=== PATIENT | female | born 1930 | race Caucasian/White ===

== ENCOUNTER → 2016-07-06 | Outpatient (CLI) | payer BC, OTHER ==
[~2016-07-06] MED LIST: AMLH/550 PO; ASPI81TA28 PO; CARB1SOL OPB; CHOL100027 PO; CYCL0.052 OPB; LPR25 PO; MULTCAP33 PO; OMEP40CA41 PO; SIMV-151 PO; ULT50HP PO
[2016-07-06 17:31] LABS: BASO % 0.9 %; BASO ABS # 0.04 K/uL (0-0.2); COMPLETE YES; EOS % 3.1 %; IG% 0.2 %; LYMPH % 24.6 %; LYMPH ABS # 1.04 K/uL (1.2-3.4); MEAN CELL VOLUME 86.7 fL (80-100); MEAN CORPUSCULAR HEMOGLOBIN 28.7 pg (25-34); MEAN CORPUSCULAR HGB CONC 33.1 g/dl (32-36); MEAN PLATELET VOLUME 9.3 fL (7.4-10.4); MONO % 12.1 %; NEUT % 59.1 %; PLATELET COUNT 216 K/uL (130-400); WHITE BLOOD COUNT 4.22 K/uL (4.8-10.8)
[2016-07-07 06:15] LABS: ESTIMATED AVERAGE GLUCOSE 111 mg/dl; HA1C FLAG Normal (Normal)
== END | disposition home or self-care (01) ==
LOC: C.LABBFT 13:22
PROVIDERS: ATTEND Internal Medicine
DX: R73.01 Impaired fasting glucose (principal); E55.9 Vitamin D deficiency, unspecified; D72.819 Decreased white blood cell count, unspecified

== ENCOUNTER → 2016-07-19 | Outpatient (CLI) | payer OTHER, BC ==
--- NOTE | 2016-07-19 11:54 | DIAGNOSTIC IMAGING REPORT ---
BILATERAL CAROTID DOPPLER STUDY HISTORY: CAROTID BRUIT COMPARISON: None. TECHNIQUE: Real-time, grayscale, and color Doppler sonography of the carotid arteries was performed. Imaging reviewed in the transverse and longitudinal planes. All measurements were calculated based on NASCET criteria. FINDINGS: Antegrade flow is seen in the bilateral vertebral arteries. The brachial pressures are hemodynamically similar. Minimal right and mild left carotid bulb calcified plaque. The peak systolic velocity within the right ICA is 44 cm/s. The right systolic ratio is 0.6. The peak systolic velocity within the left ICA is 61 cm/s. The left systolic ratio is 1.0. IMPRESSION: No hemodynamically significant stenosis seen within the carotid arteries. Electronically signed by: Darrel Courtney M.D. 07/19/2016 11:52 AM Dictated Date/Time: 07/19/2016 11:52 AM
== END | disposition home or self-care (01) ==
LOC: C.ULTR 10:45
PROVIDERS: ATTEND Internal Medicine
DX: R09.89 Other specified symptoms and signs involving the circulatory and respiratory systems (principal)

== ENCOUNTER → 2017-01-09 | Outpatient (CLI) | payer OTHER, BC ==
[2017-01-09 12:32] LABS: BASO % 0.7 %; BASO ABS # 0.03 K/uL (0-0.2); COMPLETE YES; EOS % 1.3 %; HEMATOCRIT 39.7 % (37-47); IG% 0.2 %; LYMPH % 23.5 %; LYMPH ABS # 1.05 K/uL (1.2-3.4); MEAN CELL VOLUME 87.1 fL (80-100); MEAN CORPUSCULAR HEMOGLOBIN 28.5 pg (25-34); MEAN CORPUSCULAR HGB CONC 32.7 g/dl (32-36); MEAN PLATELET VOLUME 9.3 fL (7.4-10.4); MONO % 13.2 %; NEUT % 61.1 %; PLATELET COUNT 198 K/uL (130-400); RED BLOOD COUNT 4.56 M/uL (4.2-5.4); WHITE BLOOD COUNT 4.46 K/uL (4.8-10.8)
[2017-01-09 12:46] LABS: ESTIMATED AVERAGE GLUCOSE 111 mg/dl; HA1C FLAG Normal (Normal)
[2017-01-09 12:52] LABS: ALT/SGPT 17 U/L (12-78); AST/SGOT 14 U/L (15-37); BLOOD UREA NITROGEN 17 mg/dl (7-18); BUN/CREATININE RATIO 18.8 (10-20); CARBON DIOXIDE 30 mmol/L (21-32); CHLORIDE 101 mmol/L (98-107); CREATININE 0.89 mg/dl (0.60-1.20); GLUCOSE 110 mg/dl (70-99); POTASSIUM 3.3 mmol/L (3.5-5.1); SODIUM 139 mmol/L (136-145)
[2017-01-09 12:56] LABS: URINE APPEARANCE CLEAR (CLEAR); URINE BILIRUBIN NEG (NEG); URINE COLOR DK YELLOW; URINE EPITHELIAL CELL AUTO >30 /lpf (0-5); URINE NITRITE NEG (NEG); URINE SPECIFIC GRAVITY 1.023 (1.000-1.030); UROBILINOGEN NEG (NEG); ZZUR CULT IF INDIC CLEAN CATCH NO
[2017-01-09 13:03] LABS: ALB/GLOB RATIO 1.1 (0.9-2); ALKALINE PHOSPHATASE 84 U/L (45-117); CHOLESTEROL 146 mg/dl (0-200); CHOLESTEROL/HDL RATIO 2.7; HDL CHOLESTEROL 54 mg/dl; LDL CHOLESTEROL CALCULATED 74 mg/dl; TRIGLYCERIDES 92 mg/dl (0-150); VERY LOW DENSITY LIPOPROT CALC 18 mg/dl
[2017-01-09 13:05] LABS: MANUAL MICROSCOPIC REQUIRED? NO; REVIEW REQ? NO
== END | disposition home or self-care (01) ==
LOC: C.LABBFT 09:07
PROVIDERS: ATTEND Internal Medicine
DX: R73.01 Impaired fasting glucose (principal); E78.00 Pure hypercholesterolemia, unspecified; E55.9 Vitamin D deficiency, unspecified

== ENCOUNTER 2017-06-09 16:31 | Emergency (ER) | payer OTHER, BC ==
[~2017-06-09] VITALS: Ht 152.4 cm; Wt 60.0 kg
[2017-06-09 16:41] VITALS: TEMP 36.8; Ht 152.4 cm; Wt 60.0 kg
[2017-06-09] MEDS ORDERED: MoRPHine SULFATE 4 MG/ML 1 ML CARP\\VIAL IV STA (18:25)
[2017-06-09] MEDS ORDERED: ONDANSETRON INJ 2 MG/ML 2 ML VIAL IV STA (18:25)
[2017-06-09] MEDS ORDERED: MoRPHine SULFATE 2 MG/ML CARP ONE (18:50)
[2017-06-09 18:59] LABS: BASO % 0.2 %; BASO ABS # 0.02 K/uL (0-0.2); EOS % 0.1 %; EOS ABS # 0.01 K/uL (0-0.5); HEMATOCRIT 40.5 % (37-47); IG# 0.04 K/uL (0.00-0.02); MEAN CELL VOLUME 85.1 fL (80-100); MEAN CORPUSCULAR HEMOGLOBIN 29.4 pg (25-34); MEAN CORPUSCULAR HGB CONC 34.6 g/dl (32-36); MEAN PLATELET VOLUME 8.9 fL (7.4-10.4); MONO % 9.3 %; MONO ABS # 0.92 K/uL (0.11-0.59); NEUT ABS # 8.34 K/uL (1.4-6.5); PLATELET COUNT 194 K/uL (130-400); RED CELL DISTRIBUTION WIDTH SD 43.1 fL (36.4-46.3); WHITE BLOOD COUNT 9.93 K/uL (4.8-10.8)
[2017-06-09 19:16] LABS: CALCIUM 9.2 mg/dl (8.5-10.1); CREATININE 1.14 mg/dl (0.60-1.20); POTASSIUM 3.8 mmol/L (3.5-5.1)
[2017-06-09 19:19] LABS: TOTAL PROTEIN 7.3 gm/dl (6.4-8.2)
--- NOTE | 2017-06-09 19:54 | DIAGNOSTIC IMAGING REPORT ---
CT SCAN OF THE ABDOMEN AND PELVIS WITHOUT CONTRAST CLINICAL HISTORY: Left flank pain COMPARISON STUDY: No previous studies for comparison. TECHNIQUE: CT scan of the abdomen and pelvis was performed from the lung bases to the proximal femurs. Images are reviewed in the axial, sagittal, and coronal planes. IV contrast was not administered for this examination. A dose lowering technique was utilized adhering to the principles of ALARA. CT DOSE: 638.98 mGy.cm FINDINGS: Lower chest: There are by basilar atelectatic changes. There is aortic tortuosity. There is calcification within the mitral valve annulus. Liver: There is a 1 cm hypodensity within the liver the right/left lobe junction. This likely represents a cyst. Gallbladder: Cholelithiasis Spleen: Normal in size and attenuation. Pancreas: Unremarkable. Adrenal glands: Unremarkable. Kidneys: There is a 6 mm lower pole right renal calculus. There are multiple left renal calculi. The largest cluster is located within the lower pole measuring 1 cm]. There is left-sided hydronephrosis. There is left-sided perinephric stranding. There is a 5 mm proximal left ureteral calculus. There is a left UVJ calculus measuring 4 mm. Bowel: There are no transition zones indicate bowel obstruction. There is no acute diverticulitis. Peritoneum: There is no intraperitoneal free air or abdominal ascites. There is a fat-containing umbilical hernia Vasculature: The abdominal aorta is normal in course and caliber. Adenopathy: None. Pelvic viscera: The uterus is surgically absent. There is pelvic floor relaxation Skeletal structures: The bones are osteopenic. There are multiple lumbar and thoracic vertebral body compression fractures. IMPRESSION: 1. No evidence of bowel obstruction. No evidence of free air 2. Cholelithiasis 3. Bilateral nephrolithiasis 4. Left-sided hydronephrosis and hydroureter. 5 mm proximal left ureteral calculus and 4 mm left UVJ calculus Electronically signed by: Ramon Saavedra M.D. 06/09/2017 7:53 PM Dictated Date/Time: 06/09/2017 7:48 PM
[2017-06-09] MEDS ORDERED: SODIUM CHLORIDE 0.9% 250ML 250 ML IV STA (20:26)
[2017-06-09] MEDS ORDERED: OXYC1TAB3 PO (21:05)
[2017-06-09] MEDS ORDERED: OXYCODONE IR HOME PACK PO ONE (21:15)
[2017-06-09 21:31] VITALS: BP 126/86; PULSE 70; O2SAT 96
--- NOTE | 2017-06-10 00:40 | EMERGENCY ROOM VISIT NOTE ---
History Report prepared by Wojciech: Thanh Thorpe Under the Supervision of: Dr. Thanh Lozano M.D. First contact with patient: 18:00 Chief Complaint: FLANK PAIN Stated Complaint: PAIN L SIDE ACROSS BACK History of Present Illness The patient is a 86 year old female who presents to the Emergency Room with complaints of constant left side abdominal pain that began this afternoon. She adds that the pain radiates to her back. Patient describes the quality of pain as "gnawing". Patient states that she has a history of kidney stones. She states that the pain does not feel as bad as her previous kidney stones. Patient denies associated symptoms of fevers, vomiting, diarrhea, problems urinating, and hematuria. Patient denies any other health problems. She denies a history of high blood pressure. Source of History: patient Onset: This afternoon Position: abdomen (Left-sided) Quality: other ("Gnawing") Timing: constant Associated Symptoms: No fevers, No vomiting, No diarrhea, No urinary symptoms Review of Systems See HPI for pertinent positives & negatives. A total of 10 systems reviewed and were otherwise negative. Past Medical & Surgical Medical Problems: (1) Esophageal Reflux (2) Hypertension (3) Osteoporosis Nos Family History FH: heart attack Social History Smoking Status: Never Smoker Marital Status: Housing Status: lives with family Current/Historical Medications Scheduled Amiloride/Hctz (Amiloride/Hydrochlorothia 5-50 mg), 1 TAB PO DAILY Aspirin (Aspirin Ec), 81 MG PO DAILY Carboxymethylcellulose Sodium (Refresh), 1 DROP OPB 3-4XD Cholecalciferol (Vitamin D 1000 Unit), 1,000 INTER.UNIT PO WK Cyclosporine (Ophth) (Restasis), 1 DROP OPB BID Metoprolol Tartrate (Lopressor), 25 MG PO DAILY Multiple Vitamins W/ Minerals (Preservision Areds), 1 CAP PO BID Omeprazole (Prilosec), 20 MG PO Q2D Simvastatin (Simvastatin), 20 MG PO DAILY Tramadol HCl (Tramadol HCl), 50 MG PO DAILY Scheduled PRN Oxycodone Ir (Roxicodone Ir), 5 MG PO Q4H PRN for Pain Allergies Coded Allergies: Penicillins (Verified Allergy, Mild, 09/17/15) Physical Exam Vital Signs Date Time Temp Pulse Resp B/P (MAP) Pulse Ox O2 Delivery O2 Flow Rate FiO2 06/09/17 21:31 70 20 126/86 96 06/09/17 20:24 71 20 137/77 96 Room Air 06/09/17 18:57 74 20 148/68 95 Room Air 06/09/17 16:41 36.8 61 20 162/82 96 Room Air Physical Exam Constitutional: Vital signs reviewed. Eyes: Pupils are equal round reactive to light. Conjunctiva are noninjected. ENT: Pharynx is clear without erythema or exudate. Mucous membranes are moist. Neck supple without meningeal signs. Respiratory: Clear to auscultation bilaterally. Breath sounds are equal bilaterally. Cardiovascular: Regular rate and rhythm. No rubs or gallops. GI: Soft, nondistended and nontender. Bowel sounds are present. Musculoskeletal: No CVA tenderness. No peripheral edema. Integumentary: No cyanosis. Neurological: The patient is awake and alert. No focal deficits. Psychiatric: Normal affect. Medical Decision & Procedures ER Provider Diagnostic Interpretation: Radiology results as stated below per my review and the radiologist's interpretation: CT SCAN OF THE ABDOMEN AND PELVIS WITHOUT CONTRAST CLINICAL HISTORY: Left flank pain COMPARISON STUDY: No previous studies for comparison. TECHNIQUE: CT scan of the abdomen and pelvis was performed from the lung bases to the proximal femurs. Images are reviewed in the axial, sagittal, and coronal planes. IV contrast was not administered for this examination. A dose lowering technique was utilized adhering to the principles of ALARA. CT DOSE: 638.98 mGy.cm FINDINGS: Lower chest: There are by basilar atelectatic changes. There is aortic tortuosity. There is calcification within the mitral valve annulus. Liver: There is a 1 cm hypodensity within the liver the right/left lobe junction. This likely represents a cyst. Gallbladder: Cholelithiasis Spleen: Normal in size and attenuation. Pancreas: Unremarkable. Adrenal glands: Unremarkable. Kidneys: There is a 6 mm lower pole right renal calculus. There are multiple left renal calculi. The largest cluster is located within the lower pole measuring 1 cm]. There is left-sided hydronephrosis. There is left-sided perinephric stranding. There is a 5 mm proximal left ureteral calculus. There is a left UVJ calculus measuring 4 mm. Bowel: There are no transition zones indicate bowel obstruction. There is no acute diverticulitis. Peritoneum: There is no intraperitoneal free air or abdominal ascites. There is a fat-containing umbilical hernia Vasculature: The abdominal aorta is normal in course and caliber. Adenopathy: None. Pelvic viscera: The uterus is surgically absent. There is pelvic floor relaxation Skeletal structures: The bones are osteopenic. There are multiple lumbar and thoracic vertebral body compression fractures. IMPRESSION: 1. No evidence of bowel obstruction. No evidence of free air 2. Cholelithiasis 3. Bilateral nephrolithiasis 4. Left-sided hydronephrosis and hydroureter. 5 mm proximal left ureteral calculus and 4 mm left UVJ calculus Electronically signed by: Ramon Saavedra M.D. 06/09/2017 7:53 PM Dictated Date/Time: 06/09/2017 7:48 PM Laboratory Results 06/09/17 18:50 Red Blood Count 4.76, Mean Corpuscular Volume 85.1, Mean Corpuscular Hemoglobin 29.4, Mean Corpuscular Hemoglobin Concent 34.6, Mean Platelet Volume 8.9, Neutrophils (%) (Auto) 84.0, Lymphocytes (%) (Auto) 6.0, Monocytes (%) (Auto) 9.3, Eosinophils (%) (Auto) 0.1, Basophils (%) (Auto) 0.2, Neutrophils # (Auto) 8.34, Lymphocytes # (Auto) 0.60, Monocytes # (Auto) 0.92, Eosinophils # (Auto) 0.01, Basophils # (Auto) 0.02 06/09/17 18:50 Test 06/09/17 18:50 06/09/17 20:30 White Blood Count 9.93 K/uL (4.8-10.8) Red Blood Count 4.76 M/uL (4.2-5.4) Hemoglobin 14.0 g/dL (12.0-16.0) Hematocrit 40.5 % (37-47) Mean Corpuscular Volume 85.1 fL (80-100) Mean Corpuscular Hemoglobin 29.4 pg (25-34) Mean Corpuscular Hemoglobin Concent 34.6 g/dl (32-36) Platelet Count 194 K/uL (130-400) Mean Platelet Volume 8.9 fL (7.4-10.4) Neutrophils (%) (Auto) 84.0 % Lymphocytes (%) (Auto) 6.0 % Monocytes (%) (Auto) 9.3 % Eosinophils (%) (Auto) 0.1 % Basophils (%) (Auto) 0.2 % Neutrophils # (Auto) 8.34 K/uL (1.4-6.5) Lymphocytes # (Auto) 0.60 K/uL (1.2-3.4) Monocytes # (Auto) 0.92 K/uL (0.11-0.59) Eosinophils # (Auto) 0.01 K/uL (0-0.5) Basophils # (Auto) 0.02 K/uL (0-0.2) RDW Standard Deviation 43.1 fL (36.4-46.3) RDW Coefficient of Variation 14.0 % (11.5-14.5) Immature Granulocyte % (Auto) 0.4 % Immature Granulocyte # (Auto) 0.04 K/uL (0.00-0.02) Anion Gap 7.0 mmol/L (3-11) Est Creatinine Clear Calc Drug Dose 28.7 ml/min Estimated GFR () 50.4 Estimated GFR (Non- 43.5 BUN/Creatinine Ratio 14.5 (10-20) Calcium Level 9.2 mg/dl (8.5-10.1) Total Bilirubin 1.8 mg/dl (0.2-1) Direct Bilirubin 0.3 mg/dl (0-0.2) Aspartate Amino Transf (AST/SGOT) 20 U/L (15-37) Alanine Aminotransferase (ALT/SGPT) 19 U/L (12-78) Alkaline Phosphatase 86 U/L (45-117) Total Protein 7.3 gm/dl (6.4-8.2) Albumin 4.0 gm/dl (3.4-5.0) Lipase 88 U/L (73-393) Urine Color YELLOW Urine Appearance CLOUDY (CLEAR) Urine pH 6.0 (4.5-7.5) Urine Specific [place] 1.019 (1.000-1.030) Urine Protein TRACE (NEG) Urine Glucose (UA) NEG (NEG) Urine Ketones 1+ (NEG) Urine Occult Blood 3+ (NEG) Urine Nitrite NEG (NEG) Urine Bilirubin NEG (NEG) Urine Urobilinogen NEG (NEG) Urine Leukocyte Esterase TRACE (NEG) Urine WBC (Auto) 1-5 /hpf (0-5) Urine RBC (Auto) >30 /hpf (0-4) Urine Hyaline Casts (Auto) 1-5 /lpf (0-5) Urine Epithelial Cells (Auto) >30 /lpf (0-5) Urine Bacteria (Auto) NEG (NEG) Laboratory results as reviewed by me. Medications Administered Medications (Trade) Dose Ordered Sig/Nathanael Route Start Time Stop Time Status Last Admin Dose Admin Ondansetron HCl (Zofran Inj) 4 mg NOW STAT IV 06/09/17 18:25 06/09/17 18:27 DC 06/09/17 18:53 4 MG Morphine Sulfate (MoRPHine SULFATE INJ) 2 mg STK-MED ONCE .ROUTE 06/09/17 18:50 06/09/17 18:51 DC 06/09/17 18:54 2 MG Sodium Chloride 250 ml @ 999 mls/hr Q16M STAT IV 06/09/17 20:26 06/09/17 20:41 DC 06/09/17 20:26 999 MLS/HR Oxycodone HCl (Roxicodone Immediate Rel 5MG Home Pack) 1 homepack UD ONCE PO 06/09/17 21:15 06/09/17 21:16 DC 06/09/17 21:26 1 HOMEPACK ECG Per My Interpretation Indication: abdominal pain Rate (beats per minute): 70 Rhythm: normal sinus Findings: no ectopy, other (No ST elevation) ED Course 1804: The patient was evaluated in room A3. A complete history and physical exam was performed. 1824: Zofran Inj 4mg IV and Morphine Sulfate 2mg IV 1999: I discussed the test results with patient. She states that her pain is under control. Patient is giving a urine sample. 2025: Sodium Chloride 250 ml @ 999 mls/hr IV 2114: Oxycodone HCl 1 homepack PO 2119: Upon reevaluation, the patient appeared to have improvement of her symptoms. I discussed aly's findings with her. She states that she will follow up with Dr. Orellana of Urology. She verbalized agreement of the treatment plan. She was discharged home. Medical Decision This is an 86-year-old female presents with left-sided flank pain. Differential diagnosis includes renal colic, hydronephrosis, strain, diverticulitis, abdominal aortic aneurysm, shingles. I did perform a limited focused review of portions of the patient's old chart on the electronic medical record. The patient has had no recent pertinent visits to this hospital. I did evaluate the patient as noted above. IV access was established. I did treat patient with IV morphine and Zofran. I did order and personally review the patient's 12-lead EKG as described above. I did order and review the patient's blood work as noted in the electronic medical record. I did order a CT of the abdomen and pelvis. I did review the images myself as well as the radiology report as described above. The patient has 2 ureteral stones on the left side. One is 5 mm in the proximal ureter. One is 4 mm at the left UVJ. Urinalysis does not show signs of infection. I did order a urine culture. I did discuss the test results with the patient. She is feeling better and ready for discharge. She will follow-up with Dr. Orellana. She was given return instructions as outlined below. She was given a prescription for OxyIR and given precautions regarding this medication. She was told to take a half tablet every 4 hours as needed and not to take her tramadol while taking this medication. [place] Drug Monitoring Program Search Results: no issues identified Medication Reconcilliation Current Medication List: was personally reviewed by me Blood Pressure Screening Patient's blood pressure: Elevated blood pressure Blood pressure disposition: Referred to PCP Impression Primary Impression: Renal colic Scribe Attestation The scribe's documentation has been prepared under my direct and personally reviewed by me in its entirety. I confirm that the note above accurately reflects all work, treatment, procedures, and medical decision making performed by me. Departure Information Dispostion Home / Self-Care Prescriptions Oxycodone Ir (Roxicodone Ir) 5 Mg Tab 5 MG PO Q4H Y for Pain, #20 TAB Prov: Thanh Lozano M.D. 06/09/17 Referrals Ra Giang M.D. (PCP) Forms HOME CARE DOCUMENTATION FORM, IMPORTANT VISIT INFORMATION Patient Instructions Kidney Stones Expectant Therapy, My [facility] Additional Instructions You have been examined and treated today on an emergency basis only. This is not a substitute for, or an effort to provide, complete comprehensive medical care. It is impossible to recognize and treat all injuries or illnesses in a single emergency department visit. It is therefore important that you follow up closely with Dr. Orellana. Call as soon as possible for an appointment. Return for worsening symptoms or if you develop fever, vomiting, or any other concerning symptoms. Do not take oxycodone while taking tramadol.
--- NOTE | 2017-06-13 10:13 | EDITING REQUIRED CODING QUERY ---
CODING QUERY To promote full compliance with coding requirements relating to patient care, provider participation is requested in all cases of water jet operator uncertainty. Please assist us with the question(s) below: Coding Question(s): The "HPI" section states that the patient denies a history of high blood pressure but under the "Past Medical and Surgical" section, hypertension is listed. Can you please clarify the documentation? Physician's Response(s): The patient denied a history of high blood pressure but it was apparent from her medications that she is being treated for high blood pressure. The history of present illness includes things that the patient said to me, whether or not they are accurate statements. Thank you Josselyn Fitzgerald Principal Diagnosis: "_that condition established after study, to be chiefly responsible for occasioning the admission of the patient to the hospital for care." Co-Existing Principal Diagnosis: "_when two or more diagnoses equally meet the criteria for principal diagnosis as determined by the circumstances of admission, diagnostic work up, and/or therapy provided, and the Alphabetic Index, Tabular List, or another coding guideline does not provide sequencing direction, any one of the diagnoses may be sequenced first." "When the physician has documented what appears to be a current diagnosis in the body of the record, but has not included the diagnosis in the final diagnostic statement, the physician should be asked whether the diagnosis should be added." (Source Coding [facility] 2 QTR90. p3-4)
== END 2017-06-09 21:33 | disposition home or self-care (01) ==
LOC: C.EDB 16:33 → C.EDA 21:33
DX: K80.50 Calculus of bile duct without cholangitis or cholecystitis without obstruction (principal); N20.1 Calculus of ureter; K21.9 Gastro-esophageal reflux disease without esophagitis; I10 Essential (primary) hypertension; Z79.82 Long term (current) use of aspirin; M81.0 Age-related osteoporosis without current pathological fracture; Z88.0 Allergy status to penicillin; Z87.442 Personal history of urinary calculi

== ENCOUNTER → 2017-06-19 | Outpatient (CLI) | payer OTHER, BC ==
[~2017-06-19] MED LIST changes: +OXYC1TAB3 PO
--- NOTE | 2017-06-19 13:38 | DIAGNOSTIC IMAGING REPORT ---
KUB CLINICAL HISTORY: N20.0 Nephrolithiasis nephrocalcinosis COMPARISON STUDY: 04/04/2016 FINDINGS: Bilateral renal nephrocalcinosis essentially unchanged from the prior exam. Distribution of the right renal calcifications are now somewhat more concentrated at the lower pole right kidney. There does not appear to be a significant number of new or interval calcifications. Degenerative and posttraumatic changes of the lumbar spine are unaltered. Degenerative change of all remaining osseous structures are stable. Bowel pattern is nonobstructive. IMPRESSION: Bilateral nephrocalcinosis essentially unchanged from the prior study. No significant new or interval findings are present. The above report was generated using voice recognition software. It may contain grammatical, syntax or spelling errors. Electronically signed by: Murphy Webster M.D. 06/19/2017 1:36 PM Dictated Date/Time: 06/19/2017 1:34 PM
== END | disposition home or self-care (01) ==
LOC: C.RAD 13:17
PROVIDERS: ATTEND Urology
DX: N20.0 Calculus of kidney (principal)

== ENCOUNTER → 2017-07-17 | Outpatient (CLI) | payer OTHER, BC ==
[2017-07-17 15:03] LABS: BASO % 0.3 %; BASO ABS # 0.01 K/uL (0-0.2); EOS % 3.5 %; EOS ABS # 0.13 K/uL (0-0.5); HEMATOCRIT 38.3 % (37-47); HEMOGLOBIN 12.7 g/dL (12.0-16.0); IG# 0.01 K/uL (0.00-0.02); LYMPH % 16.8 %; LYMPH ABS # 0.63 K/uL (1.2-3.4); MEAN CELL VOLUME 87.8 fL (80-100); MEAN CORPUSCULAR HEMOGLOBIN 29.1 pg (25-34); MEAN CORPUSCULAR HGB CONC 33.2 g/dl (32-36); MEAN PLATELET VOLUME 9.1 fL (7.4-10.4); MONO % 12.5 %; MONO ABS # 0.47 K/uL (0.11-0.59); NEUT % 66.6 %; NEUT ABS # 2.51 K/uL (1.4-6.5); PLATELET COUNT 203 K/uL (130-400); RED CELL DISTRIBUTION WIDTH CV 14.6 % (11.5-14.5); WHITE BLOOD COUNT 3.76 K/uL (4.8-10.8)
[2017-07-17 15:28] LABS: BLOOD UREA NITROGEN 16 mg/dl (7-18); CALCIUM 8.7 mg/dl (8.5-10.1); CARBON DIOXIDE 32 mmol/L (21-32); CREATININE 0.84 mg/dl (0.60-1.20); GLUCOSE 114 mg/dl (70-99); POTASSIUM 3.8 mmol/L (3.5-5.1); SODIUM 137 mmol/L (136-145)
[2017-07-18 05:56] LABS: HEMOGLOBIN A1C 5.6 % (4.5-5.6)
== END | disposition home or self-care (01) ==
LOC: C.LABBFT 10:07
PROVIDERS: ATTEND Internal Medicine
DX: R73.01 Impaired fasting glucose (principal); D72.819 Decreased white blood cell count, unspecified; E55.9 Vitamin D deficiency, unspecified